=== PATIENT | female | born 1990 | race African-American/Black ===

== ENCOUNTER 2017-03-15 13:52 | Emergency (ER) | payer MEDICAID ==
[~2017-03-15] VITALS: Ht 170.2 cm; Wt 123.0 kg
[~2017-03-15 13:52] MED LIST: PREN-88 PO; ZOLP6.252 PO
[2017-03-15 14:18] VITALS: BP 125/72
== END 2017-03-15 19:54 | disposition left against medical advice (07) ==
LOC: ER 18:28
DX: Z53.21 Procedure and treatment not carried out due to patient leaving prior to being seen by health care provider (principal)

== ENCOUNTER 2017-06-23 17:08 | Emergency (ER) | payer MEDICAID ==
[~2017-06-23] VITALS: Ht 170.2 cm; Wt 118.0 kg
[2017-06-23] MEDS ORDERED: KETOROLAC 30MG/ML VIAL IV ONE (17:45)
[2017-06-23 18:00] LABS: BASOPHILS % 0.9 % (0.0-2.0); HEMATOCRIT. 35.5 % (36.0-48.0); HEMOGLOBIN. 12.1 g/dL (12.0-16.0); MEAN CORPUSCULAR HEMOGLOBIN 27.9 pg (28.0-32.0); MEAN CORPUSCULAR VOLUME 82.2 fL (81.0-99.0); MEAN PLATELET VOLUME 7.2 fl (7.4-10.4); MONOCYTES % 4.1 % (2.0-8.0); PLATELET 297 x1000/uL (130-400); RED BLOOD CELL COUNT 4.32 mill/uL (4.2-5.4); RED CELL DISTRIBUTION WIDTH 13.8 % (11.6-14.6)
[2017-06-23 18:04] LABS: CHLORIDE 102 mEq/L (98-107)
[2017-06-23 18:10] LABS: HCG SCREEN POSITIVE
[2017-06-23 18:16] LABS: CARBON DIOXIDE 24 mEq/L (21-32)
[2017-06-23 18:28] LABS: B-HCG QUANTITATIVE 41868 mIU/mL (<3)
[2017-06-23 19:14] VITALS: BP 134/69
== END 2017-06-23 20:18 | disposition home or self-care (01) ==
LOC: ER 17:29
DX: O20.0 Threatened abortion (principal); Z3A.11 11 weeks gestation of pregnancy
CPT/HCPCS: 36415; 76801; 80048; 84702; 84703; 85025; 86850; 86900; 86901; 96374; 99285; J1885

== ENCOUNTER 2020-04-09 14:03 | Emergency (ER) | payer MEDICAID, OTHER ==
[~2020-04-09] VITALS: Ht 170.2 cm; Wt 100.0 kg
[2020-04-09] MEDS ORDERED: METHOCARBAMOL 750MG TABLET PO STA (14:25)
[2020-04-09] MEDS ORDERED: HYDROCODONE/ACETAMINOPHEN 5/325MG TABLET PO ONE (14:30)
[2020-04-09] MEDS ORDERED: KETOROLAC 60MG/2ML VIAL IM ONE (14:30)
[2020-04-09 14:37] VITALS: BP 128/72
== END 2020-04-09 16:22 | disposition home or self-care (01) ==
LOC: ER 14:03
DX: M54.89 Other dorsalgia (principal); M54.2 Cervicalgia; Z98.890 Other specified postprocedural states; V43.52XA Car driver injured in collision with other type car in traffic accident, initial encounter; Y93.89 Activity, other specified; Y92.511 Restaurant or cafe as the place of occurrence of the external cause
CPT/HCPCS: 96372; 99283; J1885

== ENCOUNTER 2020-04-14 14:56 | Emergency (ER) | payer OTHER ==
[~2020-04-14] VITALS: Ht 172.7 cm; Wt 90.0 kg
[2020-04-14 18:03] LABS: CLARITY URINE CLEAR (CLEAR); COLOR URINE YELLOW (YELLOW); KETONES URINE TRACE (NEGATIVE); LEUKOCYTE ESTERASE URINE TRACE (NEGATIVE); NITRITE URINE NEGATIVE (NEGATIVE); OCCULT BLOOD URINE NEGATIVE (NEGATIVE); PH URINE 6.5 (4.5-8.0); PROTEIN URINE NEGATIVE (NEGATIVE); SPECIFIC GRAVITY URINE 1.019 (1.005-1.030); UROBILINOGEN URINE 0.2 E.U./dL (0.2-1.0)
[2020-04-14] MEDS ORDERED: AZITHROMYCIN 500 MG TABLET PO ONE (18:15)
[2020-04-14] MEDS ORDERED: CEFTRIAXONE SODIUM 250 MG/VIAL IM ONE (18:15)
[2020-04-14] MEDS ORDERED: FLUCONAZOLE 100MG TABLET PO ONE (18:15)
[2020-04-14 19:13] VITALS: BP 157/93
[2020-04-17 07:10] LABS: NEISSERIA GONORRHOEAE NAA Negative (Negative)
== END 2020-04-14 19:17 | disposition home or self-care (01) ==
LOC: ER 15:02
DX: N76.0 Acute vaginitis (principal); Z20.2 Contact with and (suspected) exposure to infections with a predominantly sexual mode of transmission; Z98.890 Other specified postprocedural states
CPT/HCPCS: 81003; 81025; 87210; 87491; 87591; 96372; 99283; J0696